=== PATIENT | female | born 1950 ===

== ENCOUNTER 2018-10-20 09:26 | Outpatient (CLI) | payer MEDICARE, MEDICAID | END 2018-10-20 09:27 | disposition home or self-care (01) | LOC: C.USIC 09:26 | DX: R31.29 Other microscopic hematuria (principal); N39.0 Urinary tract infection, site not specified ==

== ENCOUNTER 2018-11-02 09:31 | Outpatient (CLI) | payer MEDICARE, MEDICAID | END 2018-11-02 09:32 | disposition home or self-care (01) | LOC: C.CTH 09:31 | DX: N39.0 Urinary tract infection, site not specified (principal) ==

== ENCOUNTER 2018-11-04 09:23 | Outpatient (CLI) | payer MEDICARE, MEDICAID | END 2018-11-04 09:24 | disposition home or self-care (01) | LOC: C.LAB 09:23 | DX: E78.5 Hyperlipidemia, unspecified (principal) ==